=== PATIENT | female | born 1975 ===

== ENCOUNTER 2023-04-17 05:50 | Day surgery (SDC) | payer OTHER ==
[~2023-04-17] VITALS: Ht 154.9 cm; Wt 49.0 kg
[~2023-04-17 05:50] MED LIST: [UNRECOGNIZED DRUG - OTHER] PO
== END 2023-04-17 15:35 | disposition home or self-care (01) ==
LOC: CIR.AMB 05:50
PROVIDERS: ATTEND Obstetrics & Gynecology
DX: N84.0 Polyp of corpus uteri (principal); N72 Inflammatory disease of cervix uteri; N92.1 Excessive and frequent menstruation with irregular cycle; D50.8 Other iron deficiency anemias; Z20.822 Contact with and (suspected) exposure to COVID-19